=== PATIENT | female | born 1975 | race Two or more races ===

== ENCOUNTER 2018-04-09 14:49 | Outpatient (CLI) | payer OTHER | END 2018-04-09 14:51 | disposition home or self-care (01) | LOC: MAMO-SONO 14:49 → SONOGRAMA 04-10 14:15 → MAMO-SONO 04-10 14:45 | DX: Z12.31 Encounter for screening mammogram for malignant neoplasm of breast (principal) ==

== ENCOUNTER 2018-04-16 06:49 | Emergency (ER) | payer OTHER ==
[~2018-04-16] VITALS: Ht 152.4 cm; Wt 60.8 kg
== END 2018-04-16 10:16 | disposition home or self-care (01) ==
LOC: ER 06:49
DX: K62.89 Other specified diseases of anus and rectum (principal); M54.5 Low back pain

== ENCOUNTER → 2018-04-29 | Outpatient (CLI) | payer OTHER | END | disposition home or self-care (01) | LOC: MAMO-SONO 09:15 → SONOGRAMA 09:29 | DX: D25.9 Leiomyoma of uterus, unspecified (principal) ==

== ENCOUNTER 2020-08-25 08:18 | Outpatient (CLI) | payer OTHER | END 2020-08-25 08:36 | disposition home or self-care (01) | LOC: MAMO-SONO 08:18 | PROVIDERS: ATTEND Specialist | DX: N92.0 Excessive and frequent menstruation with regular cycle (principal); Z12.31 Encounter for screening mammogram for malignant neoplasm of breast; N63.0 Unspecified lump in unspecified breast ==

== ENCOUNTER 2021-12-22 09:49 | Outpatient (CLI) | payer OTHER | END 2021-12-22 10:06 | disposition home or self-care (01) | LOC: MAMO-SONO 09:49 | PROVIDERS: ATTEND Specialist | DX: D25.9 Leiomyoma of uterus, unspecified (principal); Z12.31 Encounter for screening mammogram for malignant neoplasm of breast; N63.0 Unspecified lump in unspecified breast ==

== ENCOUNTER 2023-02-20 12:02 | Outpatient (CLI) | payer OTHER | END 2023-02-20 12:25 | disposition home or self-care (01) | LOC: MAMO-SONO 12:02 | PROVIDERS: ATTEND Specialist | DX: D25.9 Leiomyoma of uterus, unspecified (principal); Z12.31 Encounter for screening mammogram for malignant neoplasm of breast; N63.0 Unspecified lump in unspecified breast ==

== ENCOUNTER 2024-10-07 10:39 | Outpatient (CLI) | payer OTHER | END 2024-10-07 10:50 | disposition home or self-care (01) | LOC: MAMO-SONO 10:39 | PROVIDERS: ATTEND Specialist | DX: N63.0 Unspecified lump in unspecified breast (principal); Z12.31 Encounter for screening mammogram for malignant neoplasm of breast; D25.9 Leiomyoma of uterus, unspecified ==